=== PATIENT | male | born 1995 | race Two or more races ===

== ENCOUNTER 2016-12-02 08:43 | Day surgery (SDC) | payer OTHER ==
[~2016-12-02] VITALS: Ht 188 cm; Wt 95.5 kg
[2016-12-02 09:54] VITALS: BP 133/69; Ht 188 cm; Wt 95.5 kg
[2016-12-02 10:34] LABS: BASOPHILS 0.2 % (0.0-2.0); EOSINOPHILS 2.1 % (0-7); HEMATOCRIT 46.6 % (42.0-54.0); HEMOGLOBIN 15.6 g/dL (13.5-17.5); IMMATURE GRANULOCYTES 0.2 % (0-5); LYMPHOCYTES 32.9 % (15-50); MCH 27.6 pg (26.0-34.0); MCHC 33.5 g/dL (31.0-37.0); MCV 82.3 fL (80.0-100.0); MEAN PLATELET VOLUME 11.5 fL (7.4-10.4); MONOCYTES 7.9 % (2-11); NEUTROPHILS 56.7 % (40-80); PLATELET COUNT 228 10x3/uL (130-400); RBC 5.66 10x6/uL (4.20-6.10); RDW 14.4 % (11.5-14.5); WBC 5.8 10x3/uL (4.8-10.8)
[2016-12-02 10:53] LABS: CALC OSMOLALITY 277 mosm/kg (275-300); CALCIUM 8.9 mg/dL (8.5-10.1); CARBON DIOXIDE 27.9 mmol/L (21.0-32.0); CHLORIDE - SERUM 102 mmol/L (98-107); CREATININE - SERUM 0.8 mg/dL (0.6-1.3); GLUCOSE 91 mg/dL (74-106); POTASSIUM - SERUM 4.1 mmol/L (3.5-5.1); SODIUM 140 mmol/L (136-145); UREA NITROGEN 10 mg/dL (7-18); eGFR NON AFRICAN AMERICAN > 90 mL/min (90-120)
--- NOTE | 2016-12-02 15:40 | NUR ---
WALKING AROUND ROOM WITHOUT DIZZINES OR UNSTEADINESS, RIGHT WRIST PIV DC'D WITH TIP INTACT. DRESSING IN PERSONAL CLOTHING. DISCHARGE INSTRUCTIONS REVIEWED WITH PATIENT AND FAMILY. PATIENT DISCHARGED HOME VIA WHEELCHAIR TO PRIVATE VEHICLE
--- NOTE | 2016-12-24 12:04 | OP ---
PATIENT NAME: JACKIE VELA MEDICAL RECORD: [id number] :95 LOCATION:[facility] ADMISSION DATE: SURGEON: MADI MAJANO DO DATE OF OPERATION: 12/02/2016 PROCEDURE: Colonoscopy REFERRING PHYSICIAN: Lakisha Flynn MD. ADMINISTERED MEDICATION: Propofol 600 mg. INDICATIONS: Rectal pain and hematochezia. PHYSICAL EXAMINATION: Normal. PROCEDURE IN DETAIL: The procedure, indications and preparation and potential complications were explained to the patient, who indicated understanding and signed the corresponding consent forms. IV anesthesia was administered by nurse spaghetti machine operator. Continuous pulse ox and blood pressure monitoring were used throughout the procedure. Supplemental oxygen was used. The quality of the preparation was good. The patient was placed in the left lateral decubitus position. The colonoscope was introduced through the rectum and advanced under direct visualization until the terminal ileum was reached. The colonoscope was retroflexed within the rectum. The patient tolerance was good. The procedure was not difficult. Digital exam was abnormal as there was some firmness to palpation and a sensation of a fibrous band or ring within the anal verge and rectum. Withdrawal time was greater than 6 minutes. SPECIMENS: 1. Anal and rectal brushings with a cytology brush was sent for viral culture. 2. Rectal plaque biopsies with cold forceps. 3. Transverse colon polyp removed with cold forceps. IMPRESSION: 1. Colon polyp of the transverse colon. 2. Rectal plaque which could be consistent with anorectal condyloma. Biopsies currently pending. 3. Rectal ulcerations which were also biopsied with cold forceps, which could be viral in nature versus traumatic. PLAN: Await biopsy results for further recommendations. If this is a condyloma, he will be referred to a general surgeon. If the viral cultures indicate another etiology, that will be treated and dealt with accordingly. TRANSINT:[id number] Voice Confirmation ID: [id number] DOCUMENT ID: [id number] MADI MAJANO DO at 1204 CC: [id number] DICTATION DATE: 12/02/16 1358 GAS CUTTING MACHINE OPERATOR: 12/02/16 2321 [facility] 12/02/16 [place] [id number]
== END 2016-12-02 15:40 | disposition home or self-care (01) ==
LOC: D.OPS 08:43
PROVIDERS: Anesthesiology
DX: K62.89 Other specified diseases of anus and rectum (principal); K92.1 Melena; K63.5 Polyp of colon

== ENCOUNTER 2017-03-14 07:47 | Day surgery (SDC) | payer OTHER ==
[~2017-03-14] VITALS: Ht 188 cm; Wt 108.0 kg
[2017-03-14 09:13] LABS: HEMATOCRIT 46.5 % (42.0-54.0); HEMOGLOBIN 15.7 g/dL (13.5-17.5); MCH 28.1 pg (26.0-34.0); MCHC 33.8 g/dL (31.0-37.0); MCV 83.2 fL (80.0-100.0); MEAN PLATELET VOLUME 10.8 fL (7.4-10.4); RBC 5.59 10x6/uL (4.20-6.10); RDW 14.4 % (11.5-14.5); WBC 7.3 10x3/uL (4.8-10.8)
[2017-03-14 09:17] VITALS: BP 134/78; Ht 188 cm; Wt 108.0 kg
--- NOTE | 2017-03-14 13:42 | NUR ---
RECIEVED PT FROM OR, AROUSES EASILY TO VERBAL STIMULI, NO C/O PAIN.
--- NOTE | 2017-03-14 15:34 | NUR ---
1400-RECD TO ROOM FROM PACU. ALERT. RESP WITH EASE. 1430-FULL LIQUIDS CONSUMED WITHOUT NAUSEA 1500-IV D/C. DISCHARGE INSTRUCTIONS REVIEWED. 1515-D/C HOME VIA WHEELCHAIR.
--- NOTE | 2017-03-18 10:04 | OP ---
PATIENT NAME: JACKIE VELA MEDICAL RECORD: [id number] :95 LOCATION:[facility] ADMISSION DATE: SURGEON: ADRIENNE DIAZ MD DATE OF OPERATION: 03/14/2017 PREOPERATIVE DIAGNOSIS: Anal papilloma with low-grade atypia. POSTOPERATIVE DIAGNOSIS: Anal papilloma with low-grade atypia. PROCEDURES: 1. Anal evaluation under anesthesia. 2. Anal biopsies. 3. Anal brushings. 4. Ablation of anal tissue utilizing the argon plasma biodiesel technology manager, which is a radiofrequency type of ablation of anal tissue. SURGEON: Adrienne Diaz MD INSTALLER INTERIOR ASSEMBLIES: None. BLOOD LOSS: Minimal. ANESTHESIA: General. COMPLICATIONS: None. OPERATIVE COURSE: The patient was conveyed to the operating room electively on 03/14/2017. General anesthesia was induced by anesthesia staff. The patient was placed in lithotomy position. The anus and perianal areas were sterilely prepped and draped. U-shaped anal retractors were placed. Papillomatous tissue was noted particularly at the 7 o'clock position and from the 11 o'clock to 1 o'clock position with the patient in the lithotomy position. Utilizing mediastinoscope biopsy forceps, I biopsied these areas. I then took a brush and performed thorough anal brushings, which were placed on Saccomanno fluid and sent to the pathologist for interpretation. These brushings will be evaluated for cytology. There was one area at 7 o'clock where there was somewhat of a defect. I performed anal dilation of the anal mucosa utilizing the argon plasma biodiesel technology manager with the esophageal setting in the forced mode. I closed the small defect at the anal verge at 7 o'clock with a single horizontal mattress 3-0 Vicryl suture. Gelfoam was packed within the anus and lower rectum. A combination of steroid preparation and Marcaine were used to infiltrate the perianal tissues. A topical anesthetic was applied to the external hemorrhoids. The patient was then extubated and conveyed to post-anesthesia care unit where he was in stable condition. He will be dismissed home on Colace, Cincinnatus as well as Valium. The area that was most indurated and most worrisome was at the 12 o'clock position. TRANSINT:[id number] Voice Confirmation ID: [id number] DOCUMENT ID: [id number] OPERATIVE REPORT [id number] MIRIANJACKIE ADRIENNE GARCIA MD at 1004 CC: OSWALDO STEPHENSON MD and MADI MAJANO DO [id number] DICTATION DATE: 03/14/17 1346 LOAD HAUL DUMP OPERATOR: 03/14/17 2313 [facility] 03/14/17 [facility] [address] [place] [address]
--- NOTE | 2017-03-18 10:04 | HP ---
PATIENT: JACKIE VELA MEDICAL RECORD: [id number] ACCOUNT: [id number] [facility]ATION:[facility] : 89 ADMISSION DATE: 03/14/17 HISTORY AND PHYSICAL EXAMINATION HISTORY OF PRESENT ILLNESS: I saw the patient in the office. The patient had an anal papilloma with low-grade atypia/dysplasia. He is to undergo anal evaluation under anesthesia with biopsies and brushings, as well as ablation of anal tissue with the argon plasma traveling inventory associate. The risks, possible complications and alternatives to procedure were explained to the patient. He elects to proceed. The discussion specifically included, but was not limited to, bleeding requiring emergency reoperation, infection, the possible need for radiation therapy if the patient does develop anal cancer and the probable need for surveillance anal biopsies and brushings. TRANSINT:[id number] Voice Confirmation ID: [id number] DOCUMENT ID: [id number] ADRIENNE DIAZ MD at 1004 CC: [id number] DICTATION DATE: 03/14/17 1338 REFINERY OPERATOR ASSISTANT: 03/14/17 1908 [facility] 03/14/17 [facility] [address] [place] [address]
== END 2017-03-14 15:15 | disposition home or self-care (01) ==
LOC: D.OPS 07:47 → D.PAN 11:15 → D.OPS 13:05 → D.PAN 13:45 → D.OPS 15:15
PROVIDERS: Anesthesiology
DX: A63.0 Anogenital (venereal) warts (principal); Z01.812 Encounter for preprocedural laboratory examination

== ENCOUNTER 2018-05-08 05:56 | Day surgery (SDC) | payer OTHER ==
[~2018-05-08] VITALS: Ht 190.5 cm; Wt 104.3 kg
--- NOTE | ~2018-05-08 | OP ---
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 POSTOPERATIVE DIAGNOSES: History of anal papilloma with low-grade dysplasia and hematochezia with no evidence of regrowth or persistence of an anal papilloma. PROCEDURES: 1. Total colonoscopy to cecum. 2. Anal evaluation under anesthesia. 3. Incisional anal biopsies. 4. Anal brushings for cytology. 5. Superficial anal ablation with the argon plasma welfare adviser utilizing the right colon setting in the forced mode. SURGEON: Adrienne Diaz MD EMBEDDED SYSTEMS ENGINEER: None. BLOOD LOSS: Minimal. ANESTHESIA: General. COMPLICATIONS: None. The risks, possible complications and alternatives to procedure were explained to the patient. He elects procedure. OPERATIVE COURSE: The patient was conveyed to the operating room electively on 05/08/2018. General anesthesia was induced by the anesthesia staff. The patient was placed in the Johnson position. A digital rectal examination was performed. A colonoscope was inserted through the anus. It was easily advanced to the cecum. I slowly withdrew the endoscope. I irrigated and aspirated extensively. The prep was adequate. A combination of normal imaging as well as narrow band imaging was utilized. A retroflexed view was obtained in the rectum. I then unretroflexed the scope and removed under direct vision. The patient was then placed in the lithotomy position. The anus and perianal areas were sterilely prepped and draped. U-shaped anal retractors were placed. I noted no hemorrhoidal tissue at all. There was some rectal prolapse at the 7 o'clock position. Incisional anal biopsies were obtained and these were superficial biopsies. This was done with ENT biopsy forceps. Anal brushings were then obtained for cytology. I then ablated the anal tissue with the argon plasma welfare adviser with the right colon setting in the forced mode. Gelfoam was applied within the anus and lower rectum. A combination of steroid preparation and Marcaine was used to infiltrate the perianal tissues. I then applied a topical anesthetic cream to the anus. The patient was then extubated and conveyed to post-anesthesia care unit where he was in stable condition. Depending on the cytologic findings, I will determine when his next surveillance procedure needs to take place. It is very OPERATIVE REPORT [id number] JACKIE VELA likely we can wait 5 or 10 years in his case. TRANSINT:[id number] Voice Confirmation ID: [id number] DOCUMENT ID: [id number] ADRIENNE DIAZ MD at 1240 CC: OSWALDO STEPHENSON MD and MADI MAJANO DO [id number] DICTATION DATE: 05/08/18 1012 FREIGHT CAR REPAIRER: 05/08/18 1225 [facility] 05/08/18 [place] [id number] [place] [id number]
[2018-05-08 07:42] VITALS: BP 124/76; Ht 190.5 cm; Wt 104.3 kg
== END 2018-05-08 11:50 | disposition home or self-care (01) ==
LOC: D.OPS 05:56 → D.PAN 08:00 → D.OPS 11:50
DX: A63.0 Anogenital (venereal) warts (principal); K62.3 Rectal prolapse; Z01.812 Encounter for preprocedural laboratory examination